=== PATIENT | female | born 1985 | race Hispanic/Latino ===

== ENCOUNTER 2023-05-23 13:42 | Emergency (ER) | payer SELFPAY ==
[2023-05-23 15:28] LABS: APPEARANCE,URINE SLT CLOUDY; BILIRUBIN,URINE NEGATIVE (NEGATIVE); COLOR,URINE YELLOW; GLUCOSE,URINE NEGATIVE (NEGATIVE); KETONES,URINE NEGATIVE (NEGATIVE); LEUKOCYTE ESTERASE,URINE SMALL (NEGATIVE); NITRITE,URINE NEGATIVE (NEGATIVE); OCCULT BLOOD,URINE NEGATIVE (NEGATIVE); PH,URINE 6.5 (5.0-8.0); PROTEIN,URINE NEGATIVE (NEGATIVE)
[2023-05-23 15:38] LABS: BACTERIA,URINE 2+ (NEGATIVE); EPITHELIAL CELLS,URINE FEW (NONE-FEW); RBC,URINE 0-2 (0-2/HPF)
[2023-05-23 16:57] LABS: CANDIDA DNA PROBE NEGATIVE (NEGATIVE); GARDNERELLA DNA PROBE POSITIVE (NEGATIVE); TRICHOMONAS DNA PROBE NEGATIVE (NEGATIVE)
[2023-05-23] MEDS: metroNIDAZOLE 250 MG Tab PO ONE (17:15)
[2023-05-23] MEDS: Amoxicillin/Clavulanate K 875-125 MG Tab PO ONE (17:15)
[2023-05-23 17:39] LABS: C. TRACHOMATIS BY PCR NOT DETECTED; N. GONORRHOEAE BY PCR NOT DETECTED
== END 2023-05-23 17:55 | disposition home or self-care (01) ==
LOC: MW.ED 13:42
DX: N76.0 Acute vaginitis (principal); N39.0 Urinary tract infection, site not specified; F17.210 Nicotine dependence, cigarettes, uncomplicated; Z75.8 Other problems related to medical facilities and other health care; Z79.899 Other long term (current) drug therapy
CPT/HCPCS: 81001; 81025; 87086; 87480; 87491; 87510; 87591; 87660; 99283; A9270